=== PATIENT | male | born 1955 | race Caucasian/White ===

== ENCOUNTER 2024-04-16 13:57 | Outpatient (CLI) | payer MEDICARE ==
[~2024-04-16 13:57] MED LIST: Magnevist 469MG/ML 20 ML VIAL ONE
== END 2024-04-16 13:58 | disposition home or self-care (01) ==
LOC: BICMRI 13:57
PROVIDERS: ATTEND Family Medicine Sports Medicine
DX: M54.42 Lumbago with sciatica, left side (principal); M47.816 Spondylosis without myelopathy or radiculopathy, lumbar region; M48.8X7 Other specified spondylopathies, lumbosacral region
CPT/HCPCS: 72158; 82565; A9579